=== PATIENT | female | born 1970 | race Caucasian/White ===

== ENCOUNTER 2022-10-02 13:28 | Outpatient (CLI) | payer OTHER, SELFPAY ==
[2022-10-02 17:44] LABS: Chloride* 102 mmol/L (96-114); Potassium* 4.8 mmol/L (3.6-5.1); Sodium* 135 mmol/L (135-149)
[2022-10-02 17:46] LABS: Carbon Dioxide* 20 mmol/L (20-32); Cholesterol* 272 mg/dL (90-199); Creatinine* 0.7 mg/dL (0.5-1.5); Estimated Glomerular Filt Rate 105 ml/min
[2022-10-02 17:47] LABS: Blood Urea Nitrogen* 15 mg/dL (7-30); Calcium* 9.2 mg/dL (8.4-10.6); Glucose* 95 mg/dL (60-115); HDL Cholesterol* 66 mg/dL (>=50); LDL Cholesterol Calculated 145 mg/dL (<100); Triglycerides* 304 mg/dL (40-149)
== END 2022-10-02 13:29 | disposition home or self-care (01) ==
PROVIDERS: PCP Family Medicine; Visit Provider Family Medicine
DX: I10 Essential (primary) hypertension (principal); E78.5 Hyperlipidemia, unspecified
CPT/HCPCS: 80048; 80061

== ENCOUNTER 2022-10-23 10:54 | Outpatient (CLI) | payer OTHER, SELFPAY ==
--- OUTSIDE RECORDS SUMMARY | 2022-04-20 09:23 | XMS_ITS | Continuity of Care Document ---
:1970 Author Care Team Providers Name Role Phone MD Mac Mott Attending Physician MD Mark Mott Primary Care Physician Allergies, Adverse Reactions, Alerts Allergen Type Severity Reaction Last Verified Status Updated Hydroxychloroquine Allergy Mild Drug March 19, Yes A ctive reaction 2021 Penicillin v Allergy Mild hives March 19, Yes Active 2021 Social History Smoking Status Status Start Date End Date Date of Observat ion Smokes tobacco daily March 19, 2 022 8:40pm (finding) Additional Data Assigned Sex Female Problems Active Problems Medical Problem Onset Date Status Raynaud phenomenon August, Active Tobacco abuse Active Hypertension Active PMDD (premenstrual dysphoric Active disorder) Menorrhagia Active Anxiety Active Seasonal allergies Active Granuloma annulare Active Cataract Active Hyperlipidemia Active Rt sided chest pain Active S/P appendectomy June 27, 2010 Resolved S/P bunionectomy June 27, 2010 Resolved S/P left knee arthroscopy Resolved Medications Medication Status Dose Units Route Directions Qty Days Start End Ins tructions Date Date Albuterol Active 2 PUFF INH Every 6 28 July (Ventolin Hours as ) 90 Mcg needed 2017 DOSE 9:54am Alprazolam Active 1 MG PO Three Times July A Day as , needed 2020 10:15pm Atorvastatin Active 20 MG PO Bedtime 30 Calcium r 2020 3:13pm Losartan Active 100 MG PO Daily be Potassium r 2020 3:14pm Sertraline Active 100 MG PO Daily December 7:31am Valacyclovir Active 1 GM PO Twice A Day December 7:52am Acetaminophe Disconti 1-2 TAB PO Bedtime as 30 Februar Mar ch n/Hydrocodon nued needed y , 30, e Bitart 2020 2020 (Hydrocodone 5:17pm 2:17pm -Acetaminoph en) 5 Mg/325 Mg TAB Acetaminophe Disconti 1-2 TAB PO Q4-6H Prn 50 Decembe Apri l n/Hydrocodon nued r , 2nd, e Bitart 2011 2012 (Ray 11:28am 4:29pm 5/325) 5 Mg/325 Mg TAB Acyclovir Disconti 400 MG PO Three Times March Take for 7 nued A Day r 18, 9, days. 2013 2015 1:36pm 10:25a m Albuterol Disconti 1-2 PUFF INH Every 4-6 July (Ventolin nued Hours as 3rd, jean paul Hfa) 90 Mcg needed 2013, DOSE 10:10am 2016 2:56pm Albuterol Disconti 1-2 PUFF INH Q4-6H Prn Januaryobe (Ventolin nued 2nd, r 3rd, Hfa) 1 Puff 2012 2013 INHA 5:14pm 10:10a m Alprazolam Disconti 1 MG PO Three Times Aprilobe nued A Day as , r needed 2020, 9:48pm 2020 10:15p m Alprazolam Disconti 1 MG PO Three Times December nued A Day as 30, , needed 2020 2020 4:55pm 9:47pm Alprazolam Disconti 1 MG PO Three Times March nued A Day as , , needed 2019 2020 12:38pm 4:55pm Alprazolam Disconti 1 MG PO Three Times 42 October nued A Day as , , needed 2019 2019 8:20am 12:38p m Alprazolam Disconti 1 MG PO Three Times 42 Februar Wai ar nued A Day as y 22, y needed 2019 07, 2:56pm 2019 8:19am Alprazolam Disconti 0.5 MG PO Three Times 16 August Octo be Take one tab (Xanax) 0.5 nued A Day as , r by mo uth Mg TAB needed 2017, three times a 11:33am 2018 day as 3:50pm needed. Alprazolam Disconti 0.5 MG PO Three Times May e Take one tab (Xanax) 0.5 nued A Day as 8th, r , by m [facility] Mg TAB needed 2017 2017 three times a 11:54am 11:33a day as m needed. Alprazolam Disconti 0.5 MG PO Three Times February Take one tab (Xanax) 0.5 nued A Day as , , by [facility] Mg TAB needed 2017 2017 three times a 8:39am 11:54a day as m needed. Alprazolam Disconti 0.5 MG PO Three Times December Take one tab (Xanax) 0.5 nued A Day as , , by [facility] Mg TAB needed 2017 2017 three times a 11:13am 8:39am day as needed. Alprazolam Disconti 0.5 MG PO Three Times April Take one tab (Xanax) 0.5 nued A Day as , , by [facility] Mg TAB needed 2016 2017 three times a 8:43am 11:13a day as m needed. Alprazolam Disconti 0.5 MG PO Three Times April Take one tab (Xanax) 0.5 nued A Day as r 16, , by mouth Mg TAB needed 2015 2016 three times a 4:36pm 8:43am day as needed. Alprazolam Disconti 0.5 MG PO Three Times January Take one tab (Xanax) 0.5 nued A Day as , er by [facility] Mg TAB needed 2015, three times a 8:45am 2015 day as 4:36pm needed. Alprazolam Disconti 0.5 MG PO Three Times Take one tab (Xanax) 0.5 nued A Day as r 30, , by mouth Mg TAB needed 2014 2015 three times a 1:40pm 8:45am day as needed. Alprazolam Disconti 0.5 MG PO Three Times 16 August Dece mb Take one tab (Xanax) 0.5 nued A Day as , er by [facility] Mg TAB needed 2014, three times a 11:40am 2014 day as 1:40pm needed. Alprazolam Disconti 0.5 MG PO Three Times Aprilobe Take one tab (Xanax) 0.5 nued A Day as , r by [facility] Mg TAB needed 2014, three times a 12:20pm 2014 day as 11:40a needed. m Alprazolam Disconti 0.5 MG PO Three Times October Take one tab (Xanax) 0.5 nued A Day as , , by [facility] Mg TAB needed 2014 2014 three times a 8:55am 12:20p day as m needed. Alprazolam Disconti 0.5 MG PO Three Times October ar Take one tab (Xanax) 0.5 nued A Day as , y , by [facility] Mg TAB needed 2013 2014 three times a 3:34pm 8:55am day as needed. Alprazolam Disconti 0.5 MG PO Tid Prn Julyuar T dharmesh one tab (Xanax) 0.5 nued , y by mouth Mg TAB 2012, three times a 5:11pm 2013 day as 3:34pm needed. Alprazolam Disconti 0.5 MG PO Tid Prn April Rocael e one tab (Xanax) 0.5 nued , r by mouth Mg TAB 2012, three times a 4:48pm 2012 day as 5:11pm needed. Alprazolam Disconti 0.5 MG PO Tid Prn February Take one tab (Xanax) 0.5 nued , , by mouth Mg TAB 2012 2012 three times a 4:56pm 4:48pm day as needed. Alprazolam Disconti 0.5 MG PO Tid Prn December Take one tab (Xanax) 0.5 nued , , by mouth Mg TAB 2012 2012 three times a 8:32am 4:56pm day as needed. Alprazolam Disconti 0.5 MG PO Tid Prn December Ta ke one tab (Xanax) 0.5 nued r , , by fabian th Mg TAB 2011 2012 three times a 11:29am 8:32am day as needed. Alprazolam Disconti 0.5 MG PO Tid Prn Decemb T dharmesh one tab (Xanax) 0.5 nued er 7th, er by fabian th Mg TAB 2011, three times a 3:47pm 2011 day as 11:29a needed. m Alprazolam Disconti 0.5 MG PO Tid Prn February Rocael e one tab (Xanax) 0.5 nued 30, jean paul by mouth Mg TAB 2012 04, three times a 4:32pm 2011 day as 3:47pm needed. Alprazolam Disconti 0.5 MG PO Tid Prn February Ta ke one tab (Xanax) 0.5 nued y , , by mout h Mg TAB 2011 2011 three times a 9:05am 4:32pm day as needed. Alprazolam Disconti 0.5 MG PO Tid Prn April Rocael e one tab (Xanax) 0.5 nued , ry by mouth Mg TAB 2010 12, three times a 4:44pm 2011 day as 9:05am needed. Alprazolam Disconti 0.5 MG PO Tid Prn October (Xanax) 0.5 nued , , Mg TAB 2010 2010 12:24pm 4:44pm Alprazolam Disconti 0.5 MG PO December (Xanax) 0.5 nued , Mg TAB 2010 2:03pm Alprazolam Disconti 0.5 MG PO Tid Prn Mayr (Xanax) 0.5 nued 31, y Mg TAB 2009, 11:07am 2010 12:24p m Alprazolam Disconti 0.5 MG PO Twice A Day October l (Xanax) 0.5 nued , 13, Mg TAB 2006 2008 8:18am 9:29am Alprazolam Disconti 0.5 MG PO Twice A Day July ar (Xanax) 0.5 nued , y 8th, Mg TAB 2005 2006 8:24am 3:41pm Alprazolam Disconti 0.5 MG PO Twice A Day Julyo be (Xanax) 0.5 nued 6th, r Mg TAB 2006 07, 4:17pm 2005 8:24am Alprazolam Disconti 0.5 MG PO Twice A Day 26 April Octobe (Xanax) 0.5 nued 5th, r 6th, Mg TAB 2005 2005 4:48pm 4:17pm Alprazolam Disconti 0.5 MG PO As Needed Aprilobe Er (Xanax nued 25th, r Xr) 0.5 Mg 2006 07, TABCR 4:45pm 2005 8:24am Alprazolam Disconti 0.5 MG PO As Needed April Er (Xanax nued 25th, Xr) 0.5 Mg 2005 TABCR 4:45pm Atenolol Disconti 50 MG PO Daily 30 Februar Februa nued y , ry 2017, 3:59pm 2018 2:15pm Atenolol Disconti 50 MG PO Daily 30 uar Februa nued y , ry 2017, 12:15pm 2017 3:59pm Atenolol Disconti 50 MG PO Daily 26 November Februa nued , ry 2017 11, 11:07am 2017 12:15p m Atenolol Disconti 50 MG PO Daily 90 Decembe Februa nued r , ry 2016 , 9:30am 2016 1:35pm Atenolol Disconti 50 MG PO Daily 30 Decembe Decemb nued r 12th, er 2016 14, 11:09am 2016 2:09pm Atenolol Disconti 50 MG PO Daily 30 Novembe Decemb nued r 10th, er 2016 , 1:42pm 2015 11:09a m Atenolol Disconti 50 MG PO Daily 90 Novembe Decemb nued r 16, er 2016 , 4:36pm 2015 9:30am Atenolol Disconti 50 MG PO Daily 26 August Novemb nued 11, er 2016 , 1:57pm 2015 1:42pm Atenolol Disconti 50 MG PO Daily Mayobe nued , r 2016 , 2:56pm 2015 1:57pm Atenolol Disconti 50 MG PO Daily March nued , 2015 10:58am 2:56pm Atenolol Disconti 50 MG PO Daily March nued er 2015 10:58a 3:57pm m Azithromycin Disconti 250-50 MG PO Daily February 500 mg x 1 nued 0 , , day then 250 2015 2016 mg daily x 4 11:30am 10:25a days m Azithromycin Disconti 0 PO Daily T DHARMESH 500 MG (2 TABLETS) BY MOUTH TODAY, THEN 250 MG (1 TABLET) BY (Zithromax) nued er , MOUTH ONCE DAILY FOR 4 MORE DAYS. 250 Mg TAB 2010 06, 11:24am 2009 8:40am Betamethason Disconti 1 EJ TOP Twice A Day 09 January Cali h e nued , Dipropionate 2018 2019 (Betamethaso 9:46am 4:08pm ne Dipropionate Cream) 0.05 % CR Betamethason Disconti 1 EJ TOP Twice A Day 09 January Cali h e nued , Dipropionate 2017 2018 (Betamethaso 9:48am 9:46am ne Dipropionate Cream) 0.05 % CR Bupropion Disconti 150 MG PO Twice A Day October m Hcl nued , jean paul (Bupropion 2016, Hcl Sr (12 2:46pm 2016 Hr)) 150 Mg 2:56pm TAB Bupropion Disconti 150 MG PO Twice A Day Marchmb Hcl nued , er (Wellbutrin 2016 09, Sr) 150 Mg 10:55am 2015 TAB 11:09a m Bupropion Disconti 150 MG PO Twice A Day May Take daily Hcl nued , jean paul for 3 days (Bupropion 2012 11, and then bid. Hcl Sr (12 10:47am 2013 Hr)) 150 Mg 11:58a TAB m Ceftriaxone Disconti 1 GM IM Once December Sodium nued , , (Rocephin) 1 2010 2010 Gm INJ 2:46pm 2:56pm Cefuroxime Disconti 250 MG PO Twice A Day March Axetil nued 9, er 2016 16, 10:53am 2016 4:10pm Cephalexin Disconti 500 MG PO Three Times January nued A Day , 2012 10:55am 3:42pm Cephalexin Disconti 500 MG PO Four Times December (Keflex) 500 nued Daily , , Mg CAP 2010 2011 2:46pm 2:03pm Cyanocobalam Disconti 1000 MCG IM Once 1 Decembe Decemb in (Vitamin nued r 4th, er B 12) 1 000 2014 4th, INJ 3:10pm 2014 3:11pm Cyanocobalam Disconti 1000 MCG IM Once 1 Novembe Novemb in (Vitamin nued r 5th, er B 12) 1 000 2014 5th, INJ 3:38pm 2014 3:56pm Cyclobenzapr Disconti 10 MG PO Bedtime as 30 Februar Mar ch ine Hcl nued needed y , 2020 5:16pm 2:17pm Dapsone Disconti 100 MG PO Daily March nued , 2019 1:11pm 2:17pm Dapsone Disconti 100 MG PO Daily December nued , 2019 4:03pm 1:11pm Dapsone Disconti 50 MG PO Twice A Day 240 60 December nued , 2019 1:42pm 4:03pm Diazepam Disconti 2 MG PO Three Times February (Valium) 2 nued A Day r 17, , Mg TAB 2013 2015 12:29pm 10:55a m Diazepam Disconti 5 MG PO Once 2 Novembe Decemb take 1 tablet (Valium) 5 nued r 7th, er by mouth 30 Mg TAB 2011 14, minutes prior 2:46pm 2011 to February 10:44a repeat X1 m Diclofenac Disconti 1 EJ TOP Four Times December Sodium nued Daily , (Diclofenac 2017 Sodium 9:27am (Topical)) 3 % GEL Dicyclomine Disconti 10 MG PO Three Times 60 Februar Sep tem Hcl nued A Day y 2016, 12:00pm 2016 2:56pm Diphtheria/T Disconti 0.5 ML IM Once 1 Septem etanus/Acell nued er 9th, jean paul Pertussis 2010 06, (Adacel) 0.5 9:23am 2009 Ml INJ 9:46am Doxepin Hcl Disconti 1 EJ TOP Three Times December (Antipruriti nued A Day , c) (Doxepin 2017 Hydrochlorid 9:27am e) 5 % CRE Ergocalcifer Disconti 10846 UNIT PO Weekly 12 Decembe Februa ol (Vitamin nued r 14, ry D) 50,000 2016 06, Unt CAP 2:10pm 2016 1:35pm Esomeprazole Disconti 20 MG PO Daily Junem Magnesium nued y , jean paul 2017 , 12:01pm 2016 2:56pm Fenoprofen Disconti 1-2 TAB PO Three Times December Calcium nued A Day as 2017 9:27am Fluconazole Disconti 150 MG PO Once January nued , 2010 11:10am 2:03pm Fluocinolone Disconti 0.01 % EX Three Times Cali h Acetonide nued A Day as needed 2017 9:27am Fluoxetine Disconti 10 MG PO Daily 60 Hcl nued r , ry (Sarafem) 10 2016 06, Mg CAP 9:29am 2016 1:35pm Fluoxetine Disconti 10 MG PO Daily February Hcl nued 2013 3:08pm 10:55a m Folic Acid Disconti 1 MG PO Daily 30 Novembe Novemb nued r 10th, er 2014 16, 4:53pm 2015 4:10pm Hydroxychlor Disconti 200 MG PO Twice A Day December Cali h oquine nued , , Sulfate 2019 2019 2:21pm 2:46pm Hydroxychlor Disconti 200 MG PO Twice A Day October Ma rch oquine nued , Sulfate 2019 2019 8:48am 2:21pm Hydroxyzine Disconti 25 MG PO Twice A Day 14 03 June Nove mb Hcl nued , er (Hydroxyzine 2021 08, Hydrochlorid 5:14pm 2020 e) 25 Mg TAB 10:20a m Indomethacin Disconti 50 MG PO Three Times 30 Novembe Ma y nued A Day r 2013 12:29pm 10:55a m Influenza Disconti 0.5 ML IM Once 1 [facility] Virus nued r 11, er Vaccine 2018 08, (Fluzone 4:07pm 2018 Quadrivalent 4:21pm (3 Yrs And Older)2018-1 9) 1 Inj INJ Influenza Disconti 0.5 ML IM Once December Virus nued , , Vaccine 2019 2019 Split 2:16pm 2:24pm (Fluzone Quadrivalent 2018 0.5 Ml) 1 Inj INJ Influenza Disconti 0.5 ML IM Once 1 [facility] Virus nued r 14th, er Vaccine 2011, Split 11:26am 2011 (Fluzone Pf 12:06p [id number] m (0.5 Ml)) 0.5 Ml INJ Ketoconazole Disconti 1 EJ TOP Twice A Day Ma y (Ketoconazol nued er , , e Cream) 2 % 2013 2015 CRE 12:15pm 10:55a m Lidocaine Disconti 2-3 EJ TOP Four Times 24 January Ap ply a thin film topically to affected area(s) daily as (Lidocaine nued Daily as , needed 5% Oint) 5 % needed 2017 OIN 9:27am Lisinopril Disconti 20 MG PO Daily Mayobe nued , r 2012, 4:20pm 2012 4:08pm Losartan Disconti 100 MG PO Daily March Potassium nued 2nd, er 2020, 12:45pm 2020 3:14pm Losartan Disconti 100 MG PO Daily December Potassium nued , , 2020 2020 4:15pm 12:45p m Losartan Disconti 100 MG PO Daily May Potassium nued , , 2019 2020 1:56pm 4:15pm Losartan Disconti 100 MG PO Daily December Potassium nued , , 2019 2019 2:53pm 1:56pm Losartan Disconti 100 MG PO Daily [facility] Potassium nued , , required f or 2018 2019 additional 9:23am 2:53pm refills. Losartan Disconti 100 MG PO Daily April [facility] appt Potassium nued r , , required for 2017 2018 additional 9:14am 9:23am refills. Losartan Disconti 100 MG PO Daily December Decemb Potassium nued , er 2017, 9:51am 2017 9:14am Losartan Disconti 50 MG PO Daily ua Februa Potassium nued y 2nd, ry 2017, 12:15pm 2017 3:59pm Losartan Disconti 50 MG PO Daily Octoberua Potassium nued , ry 2017 11, 11:07am 2017 12:15p m Losartan Disconti 50 MG PO Daily 90 Decembe Januar Potassium nued r , y , 2015 2017 9:30am 11:07a m Losartan Disconti 50 MG PO Daily 30 Novem Februa Potassium nued r , ry 2015, 1:42pm 2016 11:39a m Losartan Disconti 50 MG PO Daily 90 Novem Decemb Potassium nued r 16th, er 2016 , 4:36pm 2015 9:30am Losartan Disconti 50 MG PO Daily Julyb Potassium nued th, er 2016 , 1:57pm 2015 1:42pm Losartan Disconti 50 MG PO Daily 26 June Octobe Potassium nued , r 2016 08, 2:56pm 2015 1:57pm Losartan Disconti 50 MG PO Daily March Potassium nued 2015 10:58am 2:56pm Losartan Disconti 50 MG PO Daily July Potassium nued , 2014 10:24am 10:58a m Losartan Disconti 50 MG PO Daily January Potassium nued 2015 10:18am 10:55a m Losartan Disconti 50 MG PO Daily January Patien t needs Potassium nued er , apt prior to 2015 10:18a refills 11:56am m Losartan Disconti 50 MG PO Daily May Potassium nued 2014, 10:58am 2014 11:56a m Losartan Disconti 50 MG PO Daily March Potassium nued 2014 3:54pm 10:58a m Losartan Disconti 50 MG PO Daily February Potassium nued 2014 12:00pm 3:54pm Losartan Disconti 50 MG PO Daily February Potassium nued , 2013 3:09pm 12:00p m Losartan Disconti 50 MG PO Daily January Potassium nued 2013 1:21pm 3:09pm Losartan Disconti 50 MG PO Daily December Potassium nued , 2013 1:28pm 10:31a m Losartan Disconti 50 MG PO Daily July Potassium nued , 2012 4:08pm 1:28pm Mometasone Disconti 0.1 % EX Twice A Day May b Furoate nued , er 2020 11, 5:14pm 2020 10:28a m Mupirocin Disconti 1 EJ TOP Twice A Day December A pply inside (Mupirocin nued , , your nose Ointment) 2 2019 2019 twice da nikita. % OIN 1:42pm 1:54pm Nicotine Disconti 1 INHALER IN 6 Times February (Nicotrol nued Daily as , jean paul Inhaler) INH needed 2013 11, 3:08pm 2013 11:58a m Norethindron Disconti 1 TAB PO Daily May e-Ethinyl nued , Estradiol 2009 () 10:31a (Ortho-Novum m -) 1 Tab TAB Omeprazole Disconti 20 MG PO Daily July nued , 2018 4:24pm 1:19pm Oxycodone/Ac Disconti 1-2 TABLET PO Every 4 ua b etaminophen nued Hours as y 8th, er needed 2021 08, 10:58am 2020 10:28a m Prednisone Disconti 20 MG PO Twice A Day December nued , , 2021 2021 9:28am 1:03pm Prednisone Disconti 20 MG PO Twice A Day May b nued , er 2021 08, 5:14pm 2020 10:20a m Prednisone Disconti 20-60 MG PO Daily Ud Mayb 6 0 MG PO DAILY FOR 3 DAYS, THEN nu, er 40 MG PO DAILY FOR 3 DAYS, THEN 2021 08, 20 MG PO DAILY FOR 3 DAYS. 3:46pm 2020 10:20a m Prednisone Disconti 20 MG PO Twice A Day October h 20 mg bid for , , 5 days, then 2020 2020 daily for 5 2:52pm 2:17pm days Prednisone Disconti 20 MG PO Daily December nued , 2019 1:46pm 1:19pm Sertraline Disconti 100 MG PO Daily December Hcl nued er , 2021 7:31am 12:42pm Sertraline Disconti 100 MG PO Daily April Hcl nued 2020, 2:42pm 2020 12:42p m Sertraline Disconti 100 MG PO Daily April Hcl nued r 2019 10:57am 2:42pm Sertraline Disconti 100 MG PO Daily Hcl nued er er 2019 10:15am 10:57a m Sertraline Disconti 100 MG PO Daily February Hcl nued 2019, 12:44pm 2019 10:15a m Sertraline Disconti 100 MG PO Daily October Hcl nued 2019 12:03pm 12:44p m Sertraline Disconti 100 MG PO Daily Hcl nued er 2018, 4:39pm 2019 12:03p m Sertraline Disconti 50 MG PO Daily May 1 ta b daily. Hcl nued , r 2018, 11:29am 2018 3:50pm Sertraline Disconti 50 MG PO Daily 24 FebruaryMay 28 tab daily. Hcl nued 2018 2:23pm 11:29a m Sertraline Disconti 50 MG PO Daily 24 JanuaryJanuary 26 tab daily. Hcl nued , 2018 12:05pm 2:23pm Sertraline Disconti 50 MG PO Daily December 26 tab daily Hcl nued y , for 2 days, 2018 2018 then 1 tab 4:55pm 12:05p daily. m Sertraline Disconti 50 MG PO Daily 30 Lisy Novemb Hcl nued 5th, er 2015, 9:09am 2015 4:10pm Sertraline Disconti 50 MG PO Daily January Hcl nued er , 2015 9:09am 3:57pm Simvastatin Disconti 20 MG PO Bedtime March nued 9, 2016 3:47pm 9:27am Simvastatin Disconti 10 MG PO Bedtime 60 Decembe Septem nued r , jean paul 2015, 11:45am 2016 2:56pm Tetanus-Diph Disconti 0.5 ML IM Once 1 theria nued r , er Toxoids (Td 2020 11, (Tetanus/Dip 11:05am 2020 htheria 12:13p Toxoid) 1 Ml m INJ Trazodone Disconti 50 MG PO Bedtime December Hcl nued r 2015 4:34pm 9:27am Triamcinolon Disconti 0.1 % EXT Twice A Day December Apply to the e Acetonide nued , , bottoms of (Topic 2019 2019 your feet (Triamcinolo 1:42pm 1:54pm twice a day. ne Acetonide) 0.1 % TUBE Valacyclovir Disconti 1 GM PO Twice A Day 10 [facility] Hcl nued r 2019 11:48am 7:52am Valacyclovir Disconti 1 GM PO Twice A Day 10 ly Hcl nued r 2018 2:07pm 1:54pm Valacyclovir Disconti 500 MG PO Twice A Day 12 [facility] Hcl nued r 2011 11:29am 3:42pm Valacyclovir Disconti 500 MG PO Twice A Day February Hcl nued , er 2011, 4:32pm 2011 11:29a m Valacyclovir Disconti 500 MG PO Twice A Day [facility] Hcl nued er , , (Valtrex) 2009 2010 500 Mg TAB 1:59pm 2:03pm Varenicline Disconti 1 TABLET PO As Directed 1 Ks y TITRATE (Chantix nued er , DIRECTED ON Starter 2013 2015 PACKAGE Pack) 0.5 12:19pm 10:55a Mg/1 Mg TAB m Varenicline Disconti 1 TABLET PO As Directed May ust (Chantix nued , Starter 2012 2012 Pack) 0.5 4:20pm 10:47a Mg/1 Mg TAB m Varenicline Disconti 0.5 - MG PO As Directed 26 April Decem b TAKE (Chantix nued 11 22, er ACCORDING T O Starter 2011, PACKAGE Pack) 0.5 4:13pm 2012 DIRECTION S Mg/1 Mg TAB 10:44a m Varenicline Disconti 1 MG PO Twice A Day 24 April Decem b (Chantix nued , er Continuing 2011, Pack) 1 Mg 4:13pm 2011 MARTHA 10:44a m Varenicline Disconti 0.5 - MG PO As Directed 26 June Cali h TAKE (Chantix nued 11 27, , ACCORDING T O Starter 2009 2010 PACKAGE Pack) 0.5 11:02am 2:03pm DIRECTI ONS Mg/1 Mg TAB Varenicline Disconti 1 MG PO Twice A Day 24 June Cali h (Chantix nued , , Continuing 2009 2010 Pack) 1 Mg 11:02am 2:03pm MARTHA Varenicline Disconti 1 MG PO Twice A Day October il (Chantix nued , 13, Continuing 2006 2008 Pack) 1 Mg 5:46pm 9:29am MARTHA Varenicline Disconti 1 MG PO Twice A Day October uar (Chantix nued , y , Continuing 2006 2006 Pack) 1 Mg 3:44pm 3:57pm MARTHA Varenicline Disconti 1 MG PO Twice A Day February Tartrate nued er , (Chantix 2013 2015 Continuing 12:19pm 10:55a Pack) 1 Mg m TAB Varenicline Disconti 1 MG PO Twice A Day May st Tartrate nued , (Chantix 2012 2012 Continuing 4:20pm 10:47a Pack) 1 Mg m TAB Immunizations Immunization Event Date Not Given Dose Class A [employer] Vac cine Reason Number Number Informatio n Statement (VIS) Deta il COVID-19 Moderna February 21, 2020 COVID-19 Moderna March 21, 2020 Influenza September 27 Sanofi Pasteur [id number] 2011 Influenza September 28 SANOFI [id number] 2017 Influenza January 07, SANOFI PS [id number] 2019 MMR Peds June [id number] Tetanus/Diptheri August 28 GRIFOLS [id number] a 2020 Tdap June 28 Sanofi [id number] (adolescent/adul 2009 t) Advance Directives Advance Directive Response Recorded Date/Time Does Pt have Health Care No September 06, 2015 1:26pm Directive? Has patient completed a N - Declines 01/01/18 March 19, 2022 8 :40pm Health Care Directive? Insurance Providers Guarantor Lizbeth Garza Address [address] [place] [address] [place] [address] Contact Info. 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 Yumiko Marcial MD [address] [place] [address] Skin rash [place], Work Phone: [facility] Yumiko Marcial MD [address] [place] [address] Future Procedures Procedure Name Scheduled Date KHANH Bilat Mammo Scrn Colonoscopy Screening KHANH Bilat Mammo Scrn EGD Colonoscopy Screening Future Medications Future medication information is unavailable Patient Instructions See Additional Instructions Syncope (DC)
--- NOTE | 2022-10-23 10:45 | CRLHL7_ITS ---
For Patients: As a result of the Century Cures Act, medical imaging exams and procedure reports are released immediately into your electronic medical record. You may view this report before your referring provider. If you have questions, please contact your health care provider. BILATERAL SCREENING MAMMOGRAM WITH COMPUTER-AIDED DETECTION AND TOMOSYNTHESIS TECHNIQUE: CC and MLO views were obtained. These mammographic images have been obtained using full-field digital technique. These mammographic images were interpreted with the benefit of computer-aided detection. Breast Tomosynthesis was used in this interpretation. COMPARISON FILM: 12/06/16. FINDINGS: The breasts are heterogeneously dense, which may obscure small masses IMPRESSION: There is no radiographic evidence for malignancy. ASSESSMENT: BI-RADS Category 1: Negative RECOMMENDATION: Routine screening mammogram in 1 year. A lay language report of this examination will be provided to the patient. Jluis Guardado M.D. Diagnostic Radiologist [email or web address] RIGOBERTO/Dictated by: Jluis Guardado MD @ 10/23/2022 12:29:00 PM (Electronically Signed)
== END 2022-10-23 10:55 | disposition home or self-care (01) ==
LOC: MAMMO 10:55
PROVIDERS: PCP Family Medicine; Visit Provider Family Medicine
DX: Z12.31 Encounter for screening mammogram for malignant neoplasm of breast (principal); R92.2 Inconclusive mammogram
CPT/HCPCS: 77063; 77067

== ENCOUNTER 2023-11-19 11:12 | Outpatient (CLI) | payer OTHER, SELFPAY | END 2023-11-19 11:13 | disposition home or self-care (01) | PROVIDERS: PCP Family Medicine; Visit Provider Family Medicine | DX: E78.5 Hyperlipidemia, unspecified (principal); R07.89 Other chest pain | CPT/HCPCS: 80053; 80061; 86140 ==

== ENCOUNTER 2023-12-05 15:55 | Outpatient (CLI) | payer OTHER, SELFPAY ==
--- NOTE | 2023-12-05 16:00 | CRLHL7_ITS ---
For Patients: As a result of the Cures Act, medical imaging exams and procedure reports are released immediately into your electronic medical record. You may view this report before your referring provider. If you have questions, please contact your health care provider. Indication: CHEST PAIN, UNDER LT BREAST Technique: Noncontrast CT chest Please note that all CT scans at this facility use dose modulation, iterative reconstruction, and/or weight-based dosing when appropriate to reduce radiation dose to as low as reasonably achievable. Comparison: Chest x-ray 07/20/2024 Findings: Normal visualized thyroid. Upper abdomen is unremarkable. No adenopathy. Atherosclerotic changes. Chronic displaced fracture right posterior 11th rib. Additional old right lateral 6th rib fracture. Nondisplaced rib fracture deformity involving the left anterior 5th and 6th ribs with partial healing sclerosis. Lungs are clear. Impression: Nondisplaced subacute fractures of the left anterior 5th and 6th ribs with healing sclerotic change at the 6th rib fractures. Please note that all CT scans at this facility use dose modulation, iterative reconstruction, and/or weight-based dosing when appropriate to reduce radiation dose to as low as reasonably achievable. Dictated by Jluis Guardado MD @ 12/06/2023 1:05:26 PM (Electronically Signed)
== END 2023-12-05 15:56 | disposition home or self-care (01) ==
LOC: CT 15:56
PROVIDERS: PCP Family Medicine; Visit Provider Family Medicine
DX: R07.89 Other chest pain (principal); S22.42XD Multiple fractures of ribs, left side, subsequent encounter for fracture with routine healing
CPT/HCPCS: 71250

== ENCOUNTER 2023-12-24 16:34 | Outpatient (CLI) | payer OTHER, SELFPAY ==
--- NOTE | 2023-12-24 16:40 | MM_ITS ---
Patient: LIZBETH HUTCHINSON Facility:?[facility] Patient ID:?[id number] Site Patient ID:?[id number]. Site :?[id number] Study:?XRay-Breast Bilateral 3D W/CAD-12/24/2023 5:32:00 PM Ordering Physician:?Jone Mott Final Report: BILATERAL SCREENING MAMMOGRAM WITH COMPUTER-AIDED DETECTION AND TOMOSYNTHESIS TECHNIQUE: CC and MLO views were obtained. These mammographic images have been obtained using full-field digital technique. These mammographic images were interpreted with the benefit of computer-aided detection. Breast Tomosynthesis was used in this interpretation. COMPARISON FILM: 12/16/16, 10/23/22. FINDINGS: The breasts are heterogeneously dense, which may obscure small masses. IMPRESSION: There is no radiographic evidence for malignancy. ASSESSMENT: BI-RADS Category 1: Negative RECOMMENDATION: Routine screening mammogram in 1 year. A lay language report of this examination will be provided to the patient. Jluis Guardado M.D. Diagnostic Radiologist [email or web address] DSM/sp R& Transcribed: 2:03 p.m. SP/Dictated by: Jluis Guardado MD @ 12/25/2023 8:44:00 AM Signed by:?Jluis Guardado MD @12/25/2023 2:26:22 PM (Electronic Signature)
== END 2023-12-24 16:35 | disposition home or self-care (01) ==
LOC: MAMMO 16:34
PROVIDERS: PCP Family Medicine; Visit Provider Family Medicine
DX: Z12.31 Encounter for screening mammogram for malignant neoplasm of breast (principal); R92.2 Inconclusive mammogram; Z80.3 Family history of malignant neoplasm of breast
CPT/HCPCS: 77063; 77067

== ENCOUNTER 2024-10-14 14:12 | Outpatient (CLI) | payer OTHER, SELFPAY | END 2024-10-14 14:13 | disposition home or self-care (01) | PROVIDERS: PCP Family Medicine; Visit Provider Family Medicine | DX: I10 Essential (primary) hypertension (principal); R53.83 Other fatigue | CPT/HCPCS: 80048; 84443 ==